=== PATIENT | female | born 1985 | race Two or more races ===

== ENCOUNTER 2019-03-14 09:22 | Emergency (ER) | payer OTHER ==
[2019-03-14 09:30] VITALS: BMI 28.3
[2019-03-14] MEDS ORDERED: SODIUM CHLORIDE 1,000 ML IV STA (09:32)
--- NOTE | 2019-03-14 09:43 | PDOC ---
History of Present Illness - General Chief Complaint: Pain Stated Complaint: ABD. PAIN Time Seen by Provider: 03/14/19 09:30 History Source: Patient Exam Limitations: No Limitations - History of Present Illness Initial Comments: 03/14/19 09:42 HPI 33 YOF with h/o Asthma, bipolar d/o, chronic pancreatitis of unclear etiology s/ p cholecystectomy, partial pancreactomy, hernia repairs presenting with epigastric abdominal pain, a/w nausea, vomiting and diarrhea x 1 day since yesterday. She developed epigastric abdominal pain, 20/10, nonradiating, constant and described as "sharp and stabbing and slicing" sensation. she also endorses 3 episodes of yellow-green emesis, nonbloody today. yesterday she also had 2 episodes of watery brown diarrhea, no blood or mucus but "very smelly like rotten eggs." Pain similar to prior episodes of pancreatitis, last flare about 5 years ago. has not taken any meds for pain, usually on dilaudid 4mg Q8H for pain control. no alleviating or exacerbating factors. Denies fever, chills, sweats, chest pain, SOB, cough/congestion, palpitation, dizziness, weakness, bladder and bowel problems, leg swelling, No sick contacts or travel. No new changes in medications. No suspicious food intake; she only ate piece piece of cheese and coffee prior to onset of symptoms yesterday afternoon. no recent abx use. Allergies: Percocet, shellfish Past Medical History: as documented in EMR/HPI Social history: Lives with family. No ETOH or drug use. +smoker Surgical history: hernia repairs x2, partial pancreactomy, cholecystectomy Meds: as documented in EMR Family history: noncontributory PMD: [place]. No GI 03/14/19 09:59 03/14/19 10:16 Past History - Past Medical History Allergies/Adverse Reactions: Allergies Allergy/AdvReac Type Severity Reaction Status Date / Time acetaminophen [From Percocet] Allergy Verified 03/14/19 09:30 oxycodone [From Percocet] Allergy Verified 03/14/19 09:30 shellfish derived Allergy Verified 03/14/19 09:30 Home Medications: Ambulatory Orders Famotidine [Pepcid -] 20 mg PO BID #14 tablet 03/14/19 Mag Hydrox/Al Hydrox/Simeth [Mylanta Suspension -] 30 ml PO Q6H PRN #1 bottle Ondansetron [Zofran -] 4 mg PO TID PRN #9 tablet 03/14/19 COPD: No Other medical history: hronic pancreatitis - Surgical History Abdominal Surgery: Yes (hernia repair x 2) - Suicide/Smoking/Psychosocial Hx Smoking History: Never smoked Review of Systems - Review of Systems Able to Perform ROS?: Yes Comments:: 03/14/19 10:16 Review of systems Constitutional: no fevers or chills. No weakness HEENT: no headache or dizziness. No congestion. No visual/hearing disturbances. CVS: no cp or syncope. Resp: no sob. No cough. Gastrointestinal: +abdominal pain, nausea, diarrhea, vomiting. no bloody stools. no flank pain Genitourinary: no urinary sx, hematuria no urgency/frequency. MUSCULOSKELETAL: No joint pain and swelling. +back pain. SKIN: no redness or skin changes, no discharge, no rash. No wounds. Hematologic: no easy bruising/bleeding. NEUROLOGIC: No headache, dizziness, LOC or altered mental status. No weakness, numbness or tingling. Psych: no anxiety or depression. Allergic/Immunologic: +medication allergies, shellfish allergy All other systems reviewed and negative, or as documented in HPI. *Physical Exam - Vital Signs Last Vital Signs Temp Pulse Resp BP Pulse Ox 98.2 F 61 18 121/85 98 03/14/19 09:27 03/14/19 09:27 03/14/19 09:27 03/14/19 09:27 03/14/19 09:27 - Physical Exam Comments: 03/14/19 10:16 General: Well appearing, awake and alert, NAD. HEENT: NCAT, PERRL, EOMI, clear conjunctiva, anicteric, moist mucus membranes, clear oropharynx, no oral lesions.. Neck: neck supple, FROM Resp: CTAB, normal and even respirations, no respiratory distress CVS: RRR, no murmurs, 2+ peripheral pulses throughout, no peripheral edema Abdomen: soft, abdominal surgical scars present, healed. +epigastric TTP, no rebound or guarding. No CVAT. no swann's sign. no mcburney's point tenderness. Back: nontender, normal inspection and ROM MSK: no edema, SIFUENTES x4, ROM intact. No clubbing or cyanosis. normal bulk and tone. Extremities: no calf tenderness Neuro: alert Psych: calm and cooperative Skin: warm and well perfused, cap refill <2 sec, normal color, no rash Heart Score/ECG Review #1 ECG reviewed & interpreted by me at: 09:55 General ECG Interpretation: Sinus Rhythm, Normal Rate, No acute ischemic changes Compared to previous ECG there are: Previous ECG unavail ED Treatment Course - LABORATORY CBC & Chemistry Diagram: 03/14/19 10:50 03/14/19 10:50 Medical Decision Making - Medical Decision Making 03/14/19 10:17 hpi as documented VS reviewed, wnl Vital Signs Temp Pulse Resp BP Pulse Ox 98.2 F 61 18 121/85 98 03/14/19 09:27 03/14/19 09:27 03/14/19 09:27 03/14/19 09:27 03/14/19 09:27 DDx abdominal pain: Renal colic, biliary colic, metabolic/electrolyte derangements. GERD, PUD, esophageal spasm, pancreatitis, hepatitis, constipation , colitis, gastroenteritis, cholecystitis, UTI, pyelonephritis, ileus, SBO, medication side effect, hernia, appendicitis, diverticulitis, mesenteric ischemia. msk strain, mesenteric adenitis, psoas abscess. ED course: labs and lytes wnl, mild wbc ct 12.2K LFTs and lipase normal EKG sinus rhythm, normal intervals, borderline short FL interval. normal QTC interval. NSR at 62 bpm given analgesia, dilaudid 2mg x2, reassess feels improved also pepcid, reglan, IVF, and maalox no further episodes of vomiting here. CT a/p to eval for intra abdominal source of infection/inflammation with continued epigastric AP, reassess no PO contrast, no bowel altering surgeries, no IBD, BMI is appropriate to get IV only. no intra abdominal infection/abscess, infection. rt adnexal cyst, incidental finding. 2x3cm, pt states she does occ have RLQ pain with her menstrual cycle, told to f/u [employer] for that incidental finding s/p hernia surgery, biliary duct dilation expected, cholecystectomy. 03/14/19 16:02 - on reassessment, kym PO, requesting food/juice. pain controlled abdomen benign. VS wnl. rx supportive care, hydration, bland diet pepcid and maalox prn for heartburn symptoms. allergy to percocet, so hold off and told to f/u pain specialist for her dilaudid regimen Pt to be discharged in stable condition. Patient made aware of clinical impression, treatment recommendations and disposition plan, return precautions discussed (including but not limited to new or persistent/worsening symptoms, pain, fevers, or signs of infection, chest pain, respiratory distress, inability to tolerate oral intake, dehydration, syncope, or neurologic changes) . Follow up with PMD and/or GI specialists as recommended, follow up information provided, take medications as instructed for duration of time. continue with supportive care, avoid triggers and precipitants. All questions answered to patient's satisfaction and expressed understanding and comfort with this. At the time of discharge, the patient is alert, clinically improved, tolerating po and verbalizes understanding of instructions, satisfied with the care received and felt comfortable with the plan. Patient does not suffer from an acute life-threatening medical condition at this time and is safe for outpatient follow-up. 03/14/19 16:49 03/14/19 17:07 *DC/Admit/Observation/Transfer Diagnosis at time of Disposition: Abdominal pain Qualifiers: Abdominal location: upper abdomen, unspecified Qualified Code(s): R10.10 - Upper abdominal pain, unspecified - Discharge Dispostion Disposition: HOME Condition at time of disposition: Good Decision to Admit order: No - Prescriptions Prescriptions: Famotidine [Pepcid -] 20 mg PO BID #14 tablet Mag Hydrox/Al Hydrox/Simeth [Mylanta Suspension -] 30 ml PO Q6H PRN #1 bottle PRN Reason: heartburn Ondansetron [Zofran -] 4 mg PO TID PRN #9 tablet PRN Reason: nausea vomiting - Referrals Referrals: [facility] [place] [Provider Group] [facility] [Provider Group] Mesfin Marie DO [Staff Physician] - Cora Concepcion MD [Staff Physician] - Edward Estevez MD [Staff Physician] - ON STAFF,NOT [Primary Care Provider] - Lanny Mccarty MD [Staff Physician] - Brennon Estrada MD [Staff Physician] - - Patient Instructions Printed Discharge Instructions: DI for Ovarian Cyst, DI for Abdominal Pain- Adult Additional Instructions: 1) Please follow-up with your primary care doctor in the next 1-2 days. Please call tomorrow for for any urgent issues. Gastroenterologists referrals also given 2) You were given a copy of the tests performed today. Please bring the results with you and review them with your primary care doctor. Your laboratory / imaging results were normal, there is incidental ovarian cyst on right, follow with flat bed knitter otherwise post surgical changes noted. 3) If you have any worsening of symptoms or any other concerns please return to the ED immediately. Return if worsening symptoms including fevers, headache, vomiting, visual or hearing disturbances, abdominal pain, chest pain, shortness of breath, syncope, dehydration, inability to take things by mouth/vomiting, altered mental status, or worsening concerning symptoms. 4) Please continue taking your home medications as directed. your medications on discharge include Zofran as needed for nausea/vomiting. do not drink alcohol with your medications. there is also pepcid twice a day and maalox every 6 hours for reflux and heartburn symptoms. Stay well hydrated and rest adequately. Make an appointment. If you cannot follow-up with your primary care doctor please return to the ED - Post Discharge Activity Forms/Work/School Notes: Back to Work
[2019-03-14] MEDS ORDERED: FAMOTIDINE 20 MG/50 ML IVPB 20 MG/50 ML MG IVPB ONE ×2 (09:57→10:20)
[2019-03-14] MEDS ORDERED: HYDROmorphone HCL CARPU-JECT 2 MG/1 ML DISP.SYRIN IVPUSH ONE ×2 (09:58→12:27)
[2019-03-14] MEDS ORDERED: METOCLOPRAMIDE HCL INJECTION 10 MG/2 ML VIAL IVPUSH ONE (09:58)
[2019-03-14] MEDS ORDERED: HYDROmorphone HCl 2 MG/ML VIAL ONE ×2 (10:19→12:43)
[2019-03-14] MEDS ORDERED: METOCLOPRAMIDE HCL INJECTION 10 MG/2 ML VIAL ONE (10:20)
[2019-03-14 11:15] LABS: BASO % 0.5 % (0-2.0); EOS % 1.1 % (0-4.5); HEMATOCRIT 36.2 % (32.4-45.2); HEMOGLOBIN 12.1 GM/dL (10.7-15.3); MCH 31.8 pg (25.7-33.7); MCHC 33.6 g/dl (32.0-36.0); MEAN CELL VOLUME 94.7 fl (80-96); MEAN PLT VOLUME 10.8 fl (7.5-11.1); MONO % 3.6 % (3.8-10.2); NEUT % 63.8 % (42.8-82.8); PLATELET COUNT 229 K/MM3 (134-434); RBC 3.82 M/mm3 (3.60-5.2); RDW 13.3 % (11.6-15.6); WHITE BLOOD COUNT 12.2 K/mm3 (4.0-10.0)
[2019-03-14 11:57] LABS: ALBUMIN 3.3 g/dl (3.4-5.0); BILIRUBIN,TOTAL 0.2 mg/dL (0.2-1); BLOOD UREA NITROGEN 9.5 mg/dL (7-18); CALCIUM 8.4 mg/dL (8.5-10.1); CREATININE 0.5 mg/dL (0.55-1.3); POTASSIUM 4.3 mmol/L (3.5-5.1); TOT PROT 6.6 g/dl (6.4-8.2)
[2019-03-14] MEDS ORDERED: MAG HYDROX/AL HYDROX/SIMETH 30 ML UNIT-DOSE CUP PO ONE (12:27)
[2019-03-14] MEDS ORDERED: MAG HYDROX/AL HYDROX/SIMETH 30 ML UNIT-DOSE CUP ONE (12:58)
--- NOTE | 2019-03-14 15:51 | EKG ---
Test Reason : Blood Pressure : / mmHG Vent. Rate : 062 BPM Atrial Rate : 062 BPM P-R Int : 110 ms QRS Dur : 092 ms QT Int : 440 ms P-R-T Axes : 002 052 021 degrees QTc Int : 446 ms SINUS RHYTHM WITH SHORT NC OTHERWISE NORMAL ECG NO PREVIOUS ECGS AVAILABLE Confirmed by MD MOISÉS, MURRAY ([id number]) on 03/14/2019 3:51:08 PM Referred By: Confirmed By:MURRAY CURIEL MD
[2019-03-14 17:32] VITALS: BP 135/86; PULSE 57; TEMP 97
== END 2019-03-14 17:25 | disposition home or self-care (01) ==
LOC: JER 09:22
PROC: 3E033NZ Introduction of Analgesics, Hypnotics, Sedatives into Peripheral Vein, Percutaneous Approach (ICD-10-PCS; principal; 2019-03-14)
PROC: 3E033GC Introduction of Other Therapeutic Substance into Peripheral Vein, Percutaneous Approach (ICD-10-PCS; 2019-03-14)
PROC: 3E0337Z Introduction of Electrolytic and Water Balance Substance into Peripheral Vein, Percutaneous Approach (ICD-10-PCS; 2019-03-14)
DX: R10.10 Upper abdominal pain, unspecified (principal)
CPT/HCPCS: 36415; 74177-TC; 80053; 83690; 84703; 85025; 93005; 93010; 96361; 96365; 96375; 99283-25; J7030